=== PATIENT | female | born 2005 | race Caucasian/White ===

== ENCOUNTER 2025-05-28 14:28 | Emergency (ER) | payer MEDICAID, SELFPAY ==
--- NOTE | ~2025-05-28 | XR_ITS ---
CLINICAL HISTORY: pain, constipation? 1 view abdomen Comparison: None provided Findings: Moderate stool burden. No bowel obstruction. No pneumoperitoneum or pneumatosis. No abnormal calcifications. No acute fractures. IMPRESSION: Moderate stool burden. No bowel obstruction. This document has been electronically signed by: Orlando Carballo MD on 05/28/2025 18:59:53
--- NOTE | 2025-05-28 14:36 | ED.GENADULT ---
HPI - General Adult General Chief complaint: GI Bleed Stated complaint: endometriosis concerns Time Seen by Provider: 05/28/25 18:06 Source: patient Limitations: no limitations History of Present Illness ED Provider: Betina Santoyo PA-C HPI narrative: 19-year-old female presents with rectal bleeding x6 months. Patient states she will of intermittent episodes of bright red blood per rectum. She does admit to constipation at times. Associated abdominal cramping and nausea times as well. Today, she noted a larger amount of blood in the toilet and became concerned. Denies rectal pain, fever. Related Data Allergies Allergy/AdvReac Type Severity Reaction Status Date / Time amoxicillin Allergy Unknown Verified 05/28/25 14:56 Review of Systems Review of Systems: Yes all other systems are reviewed and are negative Constitutional: Constitutional: Denies fatigue and Denies fever(s) Cardiovascular: Cardiovascular: Denies chest pain and Denies dyspnea Respiratory: Respiratory: Denies dyspnea Gastrointestinal: Gastrointestinal: Reports constipation, Reports GI cramping, Reports nausea and Denies vomiting Endocrine: Endocrine: Denies fatigue [facility] Past Medical History Attestation statement: The following information was validated with the patient. Social History Social History Alcohol intake: current Smoked in Last 30 Days: No Use of substances other than those prescribed or required for medical reasons: No Advance Directives: No Advance Directives Information Provided: No Patient : No Physical Exam ED Vital Signs: Vital Signs - 24 hr 05/28/25 14:48 05/28/25 18:41 Temperature 98.4 F Pulse Rate 95 92 Respiratory Rate 20 18 Blood Pressure 130/69 125/80 Pulse Oximetry 99 98 Oxygen Delivery Method Room Air Room Air BMI result Body Mass Index 39.5 Const Other: Alert well-appearing Orientation/consciousness: patient oriented x3 Resp Effort & Inspection: normal respiratory effort Cardio Other: Normal peripheral perfusion GI Other: Deferred rectal exam it was not relevant she is not having rectal pain Skin Other: Warm dry no rash Neuro General: patient oriented x3, gait normal, no focal motor deficits and CN's II-XI intact bilaterally Psych Other: Cooperative Course Course Course Narrative: This is a rapid medical exam performed by Benji Farris NP: Additional HPI, ROS, PE not included below will be deferred to primary provider. Patient is a 19-year-old female presenting to the ED with complaint of bright red rectal bleeding for the past 6 months. Also seen at urgent care yesterday, told she had 1+ leukocytes, but was not treated for a UTI. Plan: labs, UA Medical Decision Making Medical Decision Making [facility] Narrative: 19-year-old female presents with rectal bleeding x6 months. Patient states she will of intermittent episodes of bright red blood per rectum. She does admit to constipation at times. Associated abdominal cramping and nausea times as well. Today, she noted a larger amount of blood in the toilet and became concerned. Denies rectal pain, fever. Problem: Constipation History: Per patient I have considered the following differential diagnoses: Internal versus external hemorrhoids, diverticulosis, polyps, perirectal abscess Plan: Screening labs were obtained from triage, the patient's H&H are completely stable, given duration of symptoms, I suspect she likely has hemorrhoids, it may be constipated at this time. We will obtain a KUB. She has no focal rectal pain to suggest thrombosed hemorrhoids or perirectal abscess. No indication for advanced imaging I have independently reviewed the following tests: Labs: No leukocytosis, not anemic, no electrolyte abnormality, not , not infected urine KUB:Findings: Moderate stool burden. No bowel obstruction. No pneumoperitoneum or pneumatosis. No abnormal calcifications. No acute fractures. IMPRESSION: Moderate stool burden. No bowel obstruction. Differential Diagnosis Differential Diagnoses: The differential diagnosis associated with the presentation includes See medical decision making Admission/Observation Consideration of admission/observation: Escalation of care including admission/observation considered Not applicable Lab Data [facility] Lab Attestation statement: I reviewed the patient's lab results. 05/28/25 15:47 05/28/25 15:47 Labs: Lab Results 05/28/25 05/28/25 Range/Units 15:47 18:48 WBC 9.0 (4.8-10.8) X10*3/uL RBC 4.82 (4.20-5.50) X10*6/uL Hgb 14.3 (12.0-16.0) g/dl Hct 41.5 (37.0-47.0) % MCV 86.1 (80.0-98.0) fL MCH 29.7 (27.0-33.0) pg MCHC 34.5 (31.0-35.0) g/dl RDW 13.5 (11.0-16.0) % Plt Count 268 (160-400) X10*3/uL MPV 8.9 L (9.4-12.3) fL Immature Gran % (Auto) 0.6 H (0.0-0.4) % Neut % (Auto) 61.2 (45-73) % Lymph % (Auto) 29.6 (20-40) % Bennett % (Auto) 7.4 (2-11) % Eos % (Auto) 0.9 (0-4) % Baso % (Auto) 0.3 (0-2) % Lymph # (Auto) 2.7 (1.2-4.9) X10*3/uL Bennett # (Auto) 0.7 (0.1-1.2) X10*3/uL Eos # (Auto) 0.1 (0.0-0.4) X10*3/uL Baso # (Auto) 0.0 (0.0-0.2) X10*3/uL Abs Immat Gran (auto) 0.05 H (0.00-0.03) X10*3/uL Absolute Neuts (auto) 5.5 (2.0-8.3) x10*3/uL Absolute Nucleated RBC 0.000 (0.0-0.012) X10*3/uL Nucleated RBC % (auto) 0.0 (0.0-0.2) /100WBC Sodium 140 (135-145) mmol/L Potassium 4.5 (3.3-5.1) mmol/L Chloride 109 H (96-108) mmol/L Carbon Dioxide 25 (22-29) mmol/L Anion Gap 11 L (12-20) BUN 12 (9-16) mg/dL Creatinine 0.67 (0.5-1.4) mg/dL Estim Creat Clear Calc 146.4 Estimated GFR > 60 Random Glucose 78 (60-115) mg/dL Calcium 9.7 (8.4-10.2) mg/dL Total Bilirubin 0.2 (0.0-1.0) mg/dL AST 25 (5-31) U/L ALT 29 (0-31) U/L Alkaline Phosphatase 91 (39-117) U/L Total Protein 7.4 (6.5-8.0) g/dL Albumin 4.7 (3.5-5.0) g/dL Beta HCG, Quant < 2 mIU/mL Urine Color Yellow Urine Appearance Clear Urine pH 8.5 (5.0-9.0) Ur Specific [place] 1.015 (1.005-1.025) Urine Protein Negative (Neg-Trace) mg/dL Urine Glucose (UA) Negative (Negative) mg/dL Urine Ketones Negative (Negative) mg/dL Urine Blood Negative (Negative) Urine Nitrite Negative (Negative) Ur Leukocyte Esterase Trace H (Negative) Urine RBC 0-2 (0-2) /HPF Urine WBC 0-5 (0-5) /HPF Ur Squamous Epith Cells 6-10 (0-2) /HPF Urine Bacteria Trace (None Seen) Hyaline Casts 0-2 (0-2) /LPF Radiology Impression Discussion of test interpretation with radiology: I have reviewed the radiologist's reading. Discharge Plan Discharge Clinical Impression: Constipation Patient Disposition: Home, Self-Care Instructions: Constipation (ED) Additional Instructions: All of your screening labs were completely normal, your blood counts are normal as well. You do not have a urinary tract infection. The x-ray revealed that you were considerably constipated. See home care instructions. At this point you should use Colace twice a day, MiraLax 4 to 5 times a day, until you begin having multiple large volume bowel movements. Once you evacuate your current stool burden, stay on a bowel regimen indefinitely. You could try Colace daily with the MiraLax daily, to help maintain regularity. Follow up with your primary care provider as needed. Stand Alone Forms: Work/School Release Print Language: Djiboutian
[2025-05-28 14:48] VITALS: BP 130/69; PULSE 95; RESP 20; TEMP 36.9; O2SAT 99; BMI 39.5
[2025-05-28 15:58] LABS: MANUAL DIFF FLAG NO
[2025-05-28 16:00] LABS: Hematocrit 41.5 % (37.0-47.0); Hemoglobin 14.3 g/dl (12.0-16.0); Imm Gran Abs Auto 0.05 X10*3/uL (0.00-0.03); Imm Gran Pct Auto 0.6 % (0.0-0.4); Lymphocytes Absolute Auto 2.7 X10*3/uL (1.2-4.9); Mean Corpuscular HGB Conc 34.5 g/dl (31.0-35.0); Mean Corpuscular Hemoglobin 29.7 pg (27.0-33.0); Mean Corpuscular Volume 86.1 fL (80.0-98.0); NRBC Abs Auto 0.000 X10*3/uL (0.0-0.012); NRBC Pct Auto 0.0 /100WBC (0.0-0.2); Platelet Count 268 X10*3/uL (160-400); Red Blood Count 4.82 X10*6/uL (4.20-5.50); White Blood Count 9.0 X10*3/uL (4.8-10.8)
[2025-05-28 16:19] LABS: Alanine Aminotransferase 29 U/L (0-31); Albumin Level 4.7 g/dL (3.5-5.0); Alkaline Phosphatase 91 U/L (39-117); Anion Gap 11 (12-20); Aspartate Amino Transferase 25 U/L (5-31); Blood Urea Nitrogen 12 mg/dL (9-16); Calcium 9.7 mg/dL (8.4-10.2); Carbon Dioxide 25 mmol/L (22-29); Chloride 109 mmol/L (96-108); Creatinine Clr Calc Pharmacy 146.4; Estimated Glomerular Filt Rate > 60; Potassium 4.5 mmol/L (3.3-5.1); Sodium 140 mmol/L (135-145); Total Protein 7.4 g/dL (6.5-8.0)
--- OUTSIDE RECORDS SUMMARY | 2025-05-28 18:23 | XMS_ITS | Clinical Summary ---
Author Organization [facility] Health Address [address] [place] [address] Care Team Providers Care Abrasive Mixer Helper Name Role Phone Unavailable Primary Care Provider Unavailabl e Allergies No known active allergies Medications cyanocobalamin (VITAMIN B-12) 1,000 mcg tablet Take 1,000 mcg by mouth. Active Active Problems Problem Noted Date Diagnosed Date Encounter for routine dental examination 023 Dental caries unspecified 04/28/2023 Overview (06/26/2023): Replacing diagnoses that were inactivated after 06/07 regulatory import. Headache 07/09/2022 Overview (04/28/2023): more tension headaches; about 2x/week not migraine-like; no aura with history of concussion Hx of concussion 07/09/2022 Vitamin B12 deficiency 10/15/2021 Overview (04/28/2023): 10/15/2021. Vitamin B12 216. Recommend daily replacement. Lab Results Component Value Date B12 216 10/11/2021 Last Assessment & Plan: The current medical regimen is effective; continue present plan and medications. - B12 mckp-qme-pkhtegh supplement (still taking) recheck B12 lab Dietary iron deficiency without anemia Overview (04/28/2023): 10/14/2021 recommended to start on iron supplementation, but never did Lab Results Component Value Date HGB 14.1 10/11/2021 Lab Results Component Value Date FERRITIN 8 10/11/2021 Last Assessment & Plan: has not been taking gtit-luo-aweemkd iron recheck ferritin and iron profile now; if still low iron and ferritin, restart iron supplement ferrous sulfate every other day and recheck labs again in 3mos on suppl Vitamin D deficiency 10/14/2021 Overview (04/28/2023): Start on supplement. Recheck in 3 months. Lab Results Component Value Date VITD25 18 10/11/2021 Last Assessment & Plan: recommending to restart vit D3 zfis-iyr-wewxmbg supplement 2000 IU/day (since not been taking) recheck vit D lab now and in 3mos on supplement Generalized anxiety disorder 05/01/2021 Overview (04/28/2023): not on meds Major depressive disorder, single episode 2020 Overview (04/28/2023): not on meds Last PHQ-9 Score Date: 10/11/2021 Last PHQ-9 Score: 7 Item 9 Score: 0 - Not at all Current medication(s): None Prior medication(s): None Therapy: followed by Behavioral Health through , but not since mid 2021 Safety Planning: None needed as patient is not suicidal Today's Date: 07/09/2022 Last Assessment & Plan: PHQ-9 equals 7 today. No SI/HI. Acne 04/05/2021 Overview (04/28/2023): uses facial wash, and Retin A 0.05% -used to use Cleocin topical - not significantly helping -took combined OCP, but d/c early 2021 due weight gain and mood swings Last Assessment & Plan: will check labs to rule out PCOS could rediscuss acne treatment if not enough improved with RetinA only Immunizations Immunization Administration Dates Next Due DTaP 11/30/2009, 6,01/30/2005,12/02,2004 DTaP-IPV 08/04/2005, 5,2004,10/04 HPV, unspecified 10/11/2021 Hep A, unspecified 08/03/2008,08/06/2007 Hep B, unspecified 01/30/2005,2004, 004 IPV 11/30/2009, 5,2004,10/04 Influenza, split virus, trivalent, PF 07/10/2009 Influenza, unspecified 06/24/2008,2006,08/03/2006,08/04,06/21/2005 MMR 11/30/2009,08/04/2005 Meningococcal MCV4O 10/11/2021 Novel Zyribhlcx-[id number], nasal 11/30/2009,2008 Pneumococcal conjugate PCV 7 01/26/2006, 01/30/2005,2004,10/04 Varicella 07/11/2010,11/30/2009,11/03/2005 Family History Medical History Relation Comments No Known Problems Father No Known Problems Mother Relation Status Comments Father Mother Social History Tobacco Use Types Packs/Day Years Used Date Smoking Tobacco: Never Smokeless Tobacco: Never Tobacco Cessation:Counseling Given: Not Answered Alcohol Use Standard Drinks/Week Comments Never 0 (1 standard drink = 0.6 oz pur e alcohol) Comments No Sex and Gender Information Value Date Recorded Sex Assigned at Not on file Legal Sex Female 2:46 PM PDT Gender Identity Not on file Sexual Orientation Not on file Last Filed Vital Signs Vital Sign Reading Time Taken Comments Blood Pressure 115/78 04/28/2023 7:10 AM MDT Pulse 70 04/28/2023 7:10 AM MDT Temperature - - Respiratory Rate - - Oxygen Saturation - - Inhaled Oxygen Concentration - - Weight 77.1 kg (170 lb) 04/28/2023 7:10 AM MDT Height 160 cm (5' 3 ) 04/28/2023 7:10 AM MDT Body Mass Index 30.11 04/28/2023 7:10 AM MDT Plan of Treatment Health Maintenance Due Date Last Done Comments Dental Oral Exam 10/30/2023 04/28/2023 Dental Prophylaxis 10/30/2023 04/28/2023 Dental X-Ray: Bitewings 10/30/2023 04/28/2023 Dental CBCT 04/28/2026 04/28/2023 Dental X-Ray: Full Mouth 04/30/2026 04/29/2023, 04/08 Dental X-Ray: Panoramic 04/30/2026 04/29/2023 Procedures Procedure Name Priority Date/Time Associated Diagnosis Comments CONE BEAM CT CAPTURE AND INTERPRETATION WITH FIELD OF VIEW OF BOTH JAWS; WITH OR WITHOUT CRANIUM Routine 04/28/2023 7:00 AM MDT PROPHYLAXIS - ADULT Routine 04/28/2023 7 :00 AM MDT COMPREHENSIVE ORAL EVALUATION - NEW OR ESTABLISHED PATIENT Routine 04/28/2023 7:00 AM MDT from Last 3 Months or Most Recently Relevant to [place] [address] [facility]
--- OUTSIDE RECORDS SUMMARY | 2025-05-28 18:23 | XMS_ITS | Encounter Summary ---
Author Organization [employer] Address [address] [place] [address] Care Team Providers Care Rn Renal Name Role Phone Fifi Gonsales MD Primary Care Provider Unavailab Ryan Todd MD Primary Care Provider + Karen Saldana MD Primary Care Provider [phone] Reason for Visit * Reason Onset Date Comments Med Refill 09/05/2023 Encounter Details Date Type Department Care Team ([facility] st Contact Info) Description 09/05/2023 Refill [facility] [address] [place] [address] Fifi Gonsales MD Panic disorder; Major depression with psychotic features (CMS/HCC); Vitamin D deficiency Social History Tobacco Use Types Packs/Day Years Used Date Smoking Tobacco: Every Day Cigarettes Started: 08/05/2022 Smokeless Tobacco: Never Comments:Pt reports smokes 2 cigarettes a day Alcohol Use Standard Drinks/Week Comments Not Currently 2 (1 standard drink = 0.6 oz pure alcohol) drinks about 2 drinks a month socially Alcohol Answer Date Recorded How often do you have a drink containing alcohol ? 1 08/14/2023 How many drinks containing a lcohol do you have on a typical day when you are drinking? 0 08/14/2023 How often do you have six or more drinks on one occasion? 0 08/14/2023 Depression Answer Date Recorded Patient Health Questionnaire-9 Score 23 08/14/2023 Patient Health Questionnaire-9 Score 23 08/14/2023 Last PHQ-9: Questionnaire Data Not on file 1 10/15/2022 Housing Stability Answer Date Recorded What is your housing situation today? I have wesley mota 08/05/[address] you li ve. Do you have problems with any of the following? I am not sure 08/05/2023 Food Insecurity Answer Date Recorded Within the past 12 months, y ou worried that your food would run out before you got money to buy more: Never True 08/05/2023 Within the past 12 months,th e food you bought just didn't last and you didn't have enough money to get more: Never True Transportation Answer Date Recorded In the past 12 months, has l ack of transportation kept you from medical appts, meetings, work or from getting things needed for daily living? No 08/05/2023 Intimate Partner Violence Answer Date R ecorded Within the last year, have y ou been afraid of your partner or ex-partner? 2 08/05/2023 Within the last year, have y ou been humiliated or emotionally abused in other ways by your partner or ex-partner? 2 Within the last year, have y ou been kicked, hit, slapped, or otherwise physically hurt by your partner or ex-partner? 2 08/05/2023 Within the last year, have y ou been raped or forced to have any kind of sexual activity by your partner or ex-partner? 2 08/05/2023 Utilities Answer Date Recorded In the past 12 months, has t he electric, gas, oil or water company threatened to shut off services in your home? No 08/05/2023 Depression Answer Date Recorded Patient Health Questionnaire-2 Score 5 08/14/2023 Comments No Sex and Gender Information Value Date Recorded Sex Assigned at Female 07/27/2023 3:43 PM EST Legal Sex Female 3:40 PM EST Gender Identity Non-Binary 07/27/2023 3:43 PM EST Sexual Orientation Queer 07/27/2023 3: 43 PM EST documented as of this encounter Miscellaneous Notes * Telephone Encounter - Luanne Johnie - 09/09/2023 11:13 AM EST Control Substance Requested by : Previous Appt: No results found for any previous visit. Past Appointments Date Time Status Provider Department Type Appt Notes 09/05/2023 10:20 AM Comp Tuan Nunez MD [facility] Telephone Visit meds f/u. will be running out today 09/04/2023 2:30 PM Balbir Vaughan MD [facility] Video Visit meds f/u. will be running out today 09/04/2023 10:40 AM Can Fifi Gonsales MD [facility] Video Visit meds f/u. will be running out today 09/02/2023 9:20 AM No Show Fifi Gonsales MD [facility] Video Visit 08/26/2023 4:00 PM Comp Maricel Aguilera, [facility] Video Visit case assignment Future Appointments Date Time Provider Department Center 09/14/2023 7:40 AM Azalia Rider MD [facility] 09/17/2023 2:20 PM Fifi Gonsales MD [facility] Control Substance Request Medications: CLONAZEPAM 0.5MG TAB Last Refill Quantity: 12 Last # of Refills: 0/0 Last Rx Printed: 09/06/2023 [facility]: Did you locate the patient record in the MASSPAT System? Yes Did the Patient have more than 1 record under that name and ? No Were there any non-[facility] prescribers found, not previously noted as acceptable in the last 6 months? Yes Were there any meds filled outside [place] in the last 6 months? No Are the any meds listed on the [facility]AT that are not on the current med list from the last 6 months?No documented in this encounter Plan of Treatment Upcoming Encounters Date Type Department Care Team (Late st Contact Info) Description 06/12/2025 8:20 AM EDT Office Visit [facility] [id number] [place] [address] Karen Saldana MD [address] [place] [phone] documented as of this encounter Visit Diagnoses Diagnosis Panic disorder Panic disorder without agoraphobia Major depression with psychotic features (CMS/HCC) Vitamin D deficiency documented in this encounter Additional Health Concerns Assessment Noted Time PHQ-9 Depression Total Score: 23 023 2:09 PM EST documented as of this encounter Care Teams Rn Renal Relationship Specialty Start Date End Date Fifi Gonsales MD PCP - General Family Medicine 07/27/23 11/15/24 Ryan Andrade MD [address] [place] [address] PCP - General Family Medicine 11/16/24 05/11/25 Karen Saldana MD [address] [place] [address] PCP - General Family Medicine 05/12/25 documented as of this encounter
--- OUTSIDE RECORDS SUMMARY | 2025-05-28 18:23 | XMS_ITS | Encounter Summary ---
Author Organization [employer] Address [address] [facility] [address] [place] [address] Care Team Providers Care Brass Wind Instruments Tube Bender Name Role Phone Fiif Gonsales MD Primary Care Provider Unavailab Ryan Todd MD Primary Care Provider + Karen Saldana MD Primary Care Provider [phone] Reason for Visit * Reason Comments Med Refill Encounter Details Date Type Department Care Team ([facility] Contact Info) Description 12/10/2023 Refill [facility] [address] [place] [address] Fifi Gonsales MD Vitamin D deficiency (Primary Dx) Social History Tobacco Use Types Packs/Day Years Used Date Smoking Tobacco: Every Day Cigarettes 0.3 2.8 Started: 08/05/2022 Smokeless Tobacco: Never Comments:Pt reports [...] PM EST documented as of this encounter Plan of Treatment Upcoming Encounters Date Type Department Care Team (Late st Contact Info) Description 06/12/2025 8:20 AM EDT Office Visit [facility] [address] [place] [address] Karen Saldana MD [address] [place] [address] documented as of this encounter Visit Diagnoses Diagnosis Vitamin D deficiency- Primary documented in this encounter Additional Health Concerns Assessment Noted Time PHQ-9 Depression Total Score: 023 2:09 PM EST documented as of this encounter Care Teams Brass [employer] Instruments Tube Bender Relationship Specialty Start Date End Date Fifi Gonsales MD PCP - General Family Medicine 07/27/23 11/15/24 Ryan Andrade MD [address] [place] [address] PCP - General Family Medicine 11/16/24 05/11/25 [place] [address] [place] [id number] PCP - General Family Medicine 05/12/25 documented as of this encounter
--- OUTSIDE RECORDS SUMMARY | 2025-05-28 18:23 | XMS_ITS | Encounter Summary ---
Author Organization [employer] Address [address] [facility] [address] [place] [address] Care Team Providers Care Insurance Law Specialist Name Role Phone Fifi Gonsales MD Primary Care Provider Unavailab Ryan Todd MD Primary Care Provider + Karen Saldana MD Primary Care Provider [phone] Reason for Visit * Reason Comments Med Change Request Encounter Details Date Type Department Care Team ([facility] Contact Info) Description 10/03/2023 Refill [facility] [address] [place] [address] Fifi Gonsales MD Panic disorder; Major depression with psychotic features (CMS/HCC); Subacute frontal sinusitis Social History Tobacco Use Types Packs/Day Years [...] encounter Miscellaneous Notes * Telephone Encounter - Mehran Cobb - 10/05/2023 2:31 PM EST PATIENT REQUEST RX azithromycin Previous Appt: No results found for any previous visit. Past Appointments Date Time Status Provider Department Type Appt Notes 09/25/2023 10:40 AM Kishore De La Rosa NP [facility] Office Visit recheck 09/18/2023 10:20 AM Balbir Rider MD [facility] Office Visit recheck 09/17/2023 2:20 PM Can Fifi Gonsales MD [facility] Same Day recheck 09/14/2023 7:40 AM Comp Azalia Rider MD [facility] Video Visit medication follow up 09/05/2023 10:20 AM Comp Tuan Nunez MD [facility] Telephone Visit meds f/u. will be running out today Future Appointments Date Time Provider Department Center 10/15/2023 6:40 PM Azalia Rider MD [facility] This result has been reviewed by Mehran Cobb MA on 10/05/23 at 2:32 PM. * Telephone Encounter - Fifi Gonsales MD - 10/05/2023 1:54 PM EST Approving, but needs appt for additional refills. * Telephone Encounter - Luanne Jett - 10/05/2023 1:48 PM EST 90 days supply [facility] by[facility] Previous appointment: No results found for any previous visit. Next Appointment: Future Appointments Date Time Provider Department Center 10/15/2023 6:40 PM Azalia Rider MD [facility] Resend to Pharmacy documented in this encounter Plan of Treatment Upcoming Encounters Date Type Department Care Team (Late st Contact Info) Description 06/12/2025 8:20 AM EDT Office Visit [facility] [place] [address] Karen Saldana MD [address] [place] [id number] documented as of this encounter Visit Diagnoses Diagnosis Panic disorder Panic disorder without agoraphobia Major depression with psychotic features (CMS/HCC) Subacute frontal sinusitis documented in this encounter Additional Health Concerns Assessment Noted Time PHQ-9 Depression Total Score: 23 023 2:09 PM EST documented as of this encounter Care Teams Insurance Law Specialist Relationship Specialty Start Date End Date Fifi Gonsales MD PCP - General Family Medicine 07/27/23 11/15/24 Ryan Andrade MD [facility] [place] [address] PCP - General Family Medicine 11/16/24 05/11/25 [place] [address] [place] [id number] PCP - General Family Medicine 05/12/25 documented as of this encounter
--- OUTSIDE RECORDS SUMMARY | 2025-05-28 18:23 | XMS_ITS | Encounter Summary ---
Author Organization [employer] Address [address] [facility] [address] [place] [address] Care Team Providers Care Eeg Technologist Name Role Phone Fifi Gonsales MD Primary Care Provider Unavailab Ryan Todd MD Primary Care Provider [phone] Karen Saldana MD Primary Care Provider [phone] Encounter Details Date Type Department Care Team (Late st Contact Info) Description 09/04/2023 Telephone [facility] [address] [place] [address] Fifi Gonsales MD Social History Tobacco Use Types Packs/Day Years [...] the past 12 months, has t he [employer], gas, oil or water company threatened to [...] Description 06/12/2025 8:20 AM EDT Office Visit [facility] [address] [place] [address] Karen Saldana MD [address] [place] [address] documented as of this encounter Visit Diagnoses Not on filedocumented in this encounter Additional Health Concerns Assessment Noted Time PHQ-9 Depression Total Score: 23 023 2:09 PM EST documented as of this encounter Care Teams Eeg Technologist Relationship Specialty Start Date End Date Fifi Gonsales MD PCP - General Family Medicine 07/27/23 11/15/24 Ryan Andrade MD [address] [place] [address] PCP - General Family Medicine 11/16/24 05/11/25 Karen Saldana MD [address] [place] [address] PCP - General Family Medicine 05/12/25 documented as of this encounter
--- OUTSIDE RECORDS SUMMARY | 2025-05-28 18:23 | XMS_ITS | Encounter Summary ---
Author Organization [facility] Address [address] [place] [address] Care Team Providers Care Surface Water Technician Name Role Phone Unavailable Primary Care Provider Unavailabl e Prior Encounters Date Type Department Care Team Description 10/20/2023 Telephone [facility] [address] [place] [address], [facility] [[email or web address] [address] [place] [address] Phill Estrada DDS 04/28/2023 Travel 04/28/2023 7:00 AM MDT Office Visit [facility] [address], [facility] [[email or web address] [address] [place] [address] Danay Fernandez DDS Encounter for routine dental examination (Primary Dx); Dental caries unspecified Last Filed Vital Signs Vital Sign Reading [...] 04/28/2023 7:10 AM MDT Plan of Treatment Not on file Procedures Procedure Name Priority Date/Time Associated Diagnosis Comments APPLICATION OF DESENSITIZING MEDICAMENT Routine 04/28/2023 7:00 AM MDT 2 DO RESIN-BASED COMPOSITE - TWO SURFACES, POSTERIOR Routine 04/28/2023 7:00 AM MDT ORAL HYGIENE INSTRUCTIONS Routine 2022 7:00 AM MDT TOPICAL APPLICATION OF FLUORIDE VARNISH Routine 04/28/2023 7:00 AM MDT PROPHYLAXIS - ADULT Routine 04/28/2023 7 :00 AM MDT INTRAORAL PHOTO Routine 04/28/2023 7:00 AM MDT INTRAORAL PHOTO Routine 04/28/2023 7:00 AM MDT INTRAORAL PHOTO Routine 04/28/2023 7:00 AM MDT INTRAORAL PHOTO Routine 04/28/2023 7:00 AM MDT ADDITIONAL X-RAY Routine 04/28/2023 7:00 AM MDT SINGLE X-RAY Routine 04/28/2023 7:00 AM MDT BITEWINGS - FOUR RADIOGRAPHIC IMAGES Routine 04/28/2023 7:[address] CAPTURE AND INTERPRETATION WITH FIELD OF VIEW OF BOTH JAWS; WITH OR WITHOUT CRANIUM Routine 04/28/2023 7:00 AM MDT COMPREHENSIVE ORAL EVALUATION - NEW OR ESTABLISHED PATIENT Routine 04/28/2023 7:00 AM MDT 30 O COMPOSITE FILLING Routine 12:00 AM MDT 31 JUDE COMPOSITE FILLING Routine 04/28/20 12:00 AM MDT 19 SEALANT Routine 04/28/2023 12:00 AM MDT 18 SEALANT Routine 04/28/2023 12:00 AM MDT 13 SEALANT Routine 04/28/2023 12:00 AM MDT 14 MO COMPOSITE FILLING Routine 04/28/20 12:00 AM MDT 3 SEALANT Routine 04/28/2023 12:00 AM MDT Visit Diagnoses Diagnosis Start Date Encounter for routine dental examination 04/28/2023 Dental caries unspecified 04/28/2023 Insurance [email or web address] [id number] [facility]
--- OUTSIDE RECORDS SUMMARY | 2025-05-28 18:23 | XMS_ITS | Encounter Summary ---
Author Organization [employer] Address [address] [facility] [address] [place] [address] Care Team Providers Care Role Player Name Role Phone Fifi Gonsales MD Primary Care Provider Unavailab Ryan Todd MD Primary Care Provider + Karen Saldana MD Primary Care Provider [phone] Reason for Referral * Consultation (Routine) - Closed Specialty Diagnoses / Procedures Referred By Contac t Referred To Contact Neuropsychology Diagnoses Inattention Fifi Gonsales MD [facility] [address] [facility] 3rd Floor [place], [place] Referral ID Status Reason Start Date Expiration Date V isits Requested Visits Authorized [id number] Closed Specialty Services Required 11/03/2023 11/02/2024 12 12 Encounter Details Date Type Department Care Team ([facility] Contact Info) Description 11/03/2023 Orders Only [facility] [address] [place] [address] Fifi Gonsales MD Inattention (Primary Dx) Social History Tobacco Use Types [...] Description 06/12/2025 8:20 AM EDT Office Visit [address] [address] Karen Saldana MD [address] [place] [address] Scheduled Referrals Name Type Priority Associated Diagnoses Orde r Schedule Referral to Neurology Outpatient Referral Routine Inattention Expected: 11/03/2023 (Approximate), Expires: 11/03/2024 documented as of this encounter Visit Diagnoses Diagnosis Inattention- Primary Other specified conditions influencing health status documented in this encounter Additional Health Concerns Assessment Noted Time PHQ-9 Depression Total Score: 23 023 2:09 PM EST documented as of this encounter Care Teams Role Player Relationship Specialty Start Date End Date Fifi Gonsales MD PCP - General Family Medicine 07/27/23 11/15/24 Ryan Andrade MD [address] [place] [address] PCP - General Family Medicine 11/16/24 05/11/25 Karen Saldana MD [address] [place] [address] PCP - General Family Medicine 05/12/25 documented as of this encounter
--- OUTSIDE RECORDS SUMMARY | 2025-05-28 18:24 | XMS_ITS | Encounter Summary ---
Author Organization [employer] Address [address] [facility] 7 [place] [address] Care Team Providers Care Manager Testing Name Role Phone Fifi Gonsales MD Primary Care Provider Unavailab Ryan Todd MD Primary Care Provider [phone] Karen Saldana MD Primary Care Provider [phone] Reason for Visit * Reason Onset Date Comments Advice Only 01/15/2024 Encounter Details Date Type Department Care Team ([facility] Contact Info) Description 01/15/2024 Telephone [facility] [address] [place] [address] Fifi Gonsales MD Advice Only Social History Tobacco Use Types Packs/Day Years [...] the past 12 months, has t he [employer], gas, oil or water [employer] threatened to shut off services in your [...] encounter Miscellaneous Notes * Telephone Encounter - Miguel John - 01/15/2024 7:13 PM EDT 5705 - [facility] - ([place]) Patient/Family Caller Name:RanAlexandria PT Name:Contreras Tongn Patient :2005 Age:(18 yrs) Call Date/Time:01/15/2024 05:42 PM Alt. Phone:null 1st Guideline:2381 Tick Bite - (Adult After-Hours) Final Guideline:2381 Tick Bite - (Adult After-Hours) Care Advice:Call PCP within 24 hours Nurse:elaina Preliminary Assessment Notes:Pt Recently Got A. Tick Bite and Wants To Know If Can Get Exposure Medication. O/C: Nickolas Cruz [phone]: She/her Triage Assessment Notes:1st attempt, no answer. [facility] BP RN Pt was bit by a tick on the right leg today at work, it looked like a deer tick/watermelon seed, and it was swollen. The tick was attached for 4 hours. Pt is unsure of the last tetanus shot and is asking for prophylaxis ABX Rx. Pt's pharmacy is [facility] on [facility] [facility] in [place]. Msg sent to [place] Nickolas Cruz DO via misecure. Msg back, Last tetanus was within 10 years so all set, I will send in doxy to the pharmacy. Called and updated pt. Pt verbalized understanding. CARE ADVICE given per Tick Bites (Adult) guideline. Emily Mays RN Questions / Responses for 2380-Tick Bite - (Adult After-Hours) Resp. Initial Assessment Questions Comments YES 1. TYPE of TICK: Is it a wood tick or a deer tick? If unsure, ask: What size was the tick? Did it look more like a watermelon seed or a poppy seed? black, looked like a watermelon seed, YES 2. LOCATION: Where is the tick bite located? right leg YES 3. ONSET: How long do you think the tick was attached before you removed it? (Hours or days) 4 hours NO 4. TETANUS: When was the last tetanus booster? unsure 5. : Is there any chance you are ? When was your last menstrual period? Resp. Triage Questions (Triggering Disposition) Comments YES [1] Probable deer tick AND [2] attached > 24 hours (or tick appears swollen, not flat) AND [3] occurred in an area where Lyme disease is common Reason: consider antibiotic prophylaxis CA: 50, 16, 5, 20, 7, 1 Resp. Care Advice Comments CARE ADVICE given per Tick Bites (Adult) guideline. ANTIBIOTIC OINTMENT: Wash the wound and your hands with soap and water after removal to prevent catching any tick disease. Apply antibiotic ointment (OTC) to the bite once. CALL BACK IF: - You can't remove the tick or the tick's head - Fever or rash occur in the next 2 weeks - Bite begins to look infected - You become worse. TINY DEER TICK REMOVAL: - Harrington ticks are very small and need to be scraped off with a credit card edge or the edge of a knife blade. - Place tick in a sealed container (e.g., glass jar, zip lock plastic bag), in case the doctor wants to see it. BETO: - Place tick in a sealed container (e.g., glass jar, zip lock plastic bag). - Check with your local public health to determine if tick needs to be sent for testing. CALL PCP WITHIN 24 HOURS: You need to discuss this with your doctor within the next 24 hours. - IF OFFICE WILL BE OPEN: Call the office when it opens tomorrow morning. - IF OFFICE WILL BE CLOSED: I'll page him now. (EXCEPTION: from 9 pm to 9 am. Since this isn't urgent, we'll hold the page until morning.) documented in this encounter Plan of Treatment Upcoming Encounters Date Type Department Care Team (Late st Contact Info) Description 06/12/2025 8:20 AM EDT Office Visit [address] [address] Karen Saldana MD [address] [place] [address] documented as of this encounter Visit Diagnoses Not on filedocumented in this encounter Additional Health Concerns Assessment Noted Time PHQ-9 Depression Total Score: 23 023 2:09 PM EST documented as of this encounter Care Teams Manager Testing Relationship Specialty Start Date End Date Fifi Gonsales MD PCP - General Family Medicine 07/27/23 11/15/24 Ryan Andrade MD [address] [place] [address] PCP - General Family Medicine 11/16/24 05/11/25 Karen Saldana MD [address] [place] [address] PCP - General Family Medicine 05/12/25 documented as of this encounter
--- OUTSIDE RECORDS SUMMARY | 2025-05-28 18:24 | XMS_ITS | Encounter Summary ---
Author Organization [employer] Address [address] [facility] [address] [place] [address] Care Team Providers Care Butcher Helper Name Role Phone Fifi Gonsales MD Primary Care Provider Unavailab Ryan Todd MD Primary Care Provider [phone] Karen Saldana MD Primary Care Provider [phone] Reason for Visit * Reason Onset Date Comments Med Refill 01/19/2024 Encounter Details Date Type Department Care Team ([facility] st Contact Info) Description 01/19/2024 Refill [facility] [address] [place] [address] Fabricio Lim CNP [address] [place] [address] Attention deficit hyperactivity disorder (ADHD), predominantly inattentive type; Major depression with psychotic features (CMS/HCC) Social History Tobacco Use Types Packs/Day Years Used Date Smoking Tobacco: Every Day Cigarettes 0.3 2.8 Started: 08/05/2022 Smokeless Tobacco: Never Comments:Pt reports smokes 2 cigarettes a day Alcohol Use Standard Drinks/Week Comments Not Currently 2 (1 standard drink = 0.6 oz pure alcohol) drinks about 2 drinks a month socially Alcohol Answer Date Recorded Q1: How often do you have a drink containing alc ohol? 2 01/21/2024 Q2: How many drinks containi ng alcohol do you have on a typical day when you are drinking? 1 01/21/2024 Q3: How often do you have six or more drinks on one occasion? 1 01/21/2024 Depression Answer Date Recorded Patient Health Questionnaire-9 Score 23 08/14/2023 Patient Health Questionnaire-9 Score 23 08/14/2023 Last PHQ-9: Questionnaire Data Not on file 1 10/15/2022 Housing Stability Answer Date Recorded What is your housing situation today? I have [facility] 01/21/[address] you li ve. Do you have problems with any of the following? None of the above 01/21/2024 Food Insecurity Answer Date Recorded Within the [...] afraid of your partner or ex-partner? 2 01/21/2024 Within the last year, have y ou been humiliated or emotionally abused in other ways by your partner or ex-partner? 2 Within the last year, have y ou been kicked, hit, slapped, or otherwise physically hurt by your partner or ex-partner? 2 01/21/2024 Within the last year, have y ou been raped or forced to have any kind of sexual activity by your partner or ex-partner? 2 01/21/2024 Utilities Answer Date Recorded In the past [...] PM EST documented as of this encounter Functional Status * Audit-C Score Answer Date of Assessment Author 1 01/21/2024 8:32 AM EDT Blake, Generic * Q1: How often do you have a drink containing alcohol? Answer Date of Assessment Author Monthly or less 01/21/2024 8:32 AM EDT Mychart, Generic * Q2: How many drinks containing alcohol do you have on a typical day when you are drinking? Answer Date of Assessment Author 1 or 2 01/21/2024 8:32 AM EDT Mychart, Generic * Q3: How often do you have six or more drinks on one occasion? Answer Date of Assessment Author Never 01/21/2024 8:32 AM EDT Mychart, Generic * Over the last 2 weeks, how often have you been bothered by any of the following problems? Question Answer Date of Assessment Author PHUC-7 Total Score 21 01/21/2024 8:31 AM EDT Mychart, Generic * Feeling nervous, anxious, or on edge Answer Date of Assessment Author 3 01/21/2024 8:31 AM EDT Mychart, Generic * Not being able to stop or control worrying Answer Date of Assessment Author 3 01/21/2024 8:31 AM EDT Mychart, Generic * Worrying too much about different things Answer Date of Assessment Author 3 01/21/2024 8:31 AM EDT Mychart, Generic * Trouble relaxing Answer Date of Assessment Author 3 01/21/2024 8:31 AM EDT Mychart, Generic * Being so restless that it is hard to sit still Answer Date of Assessment Author 3 01/21/2024 8:31 AM EDT Mychart, Generic * Becoming easily annoyed or irritable Answer Date of Assessment Author 3 01/21/2024 8:31 AM EDT Mychart, Generic * Feeling afraid as if something awful might happen Answer Date of Assessment Author 3 01/21/2024 8:31 AM EDT Mychart, Generic documented as of this encounter Plan of Treatment Upcoming Encounters Date Type Department Care Team (Late st Contact Info) Description 06/12/2025 8:20 AM EDT Office Visit [facility] [facility] [address] [place] [address] Karen Saldana MD [address] [place] [address] documented as of this encounter Visit Diagnoses Diagnosis Attention deficit hyperactivity disorder (ADHD), 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
--- OUTSIDE RECORDS SUMMARY | 2025-05-28 18:24 | XMS_ITS | Clinical Summary ---
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 05/01/2021 08/05/2023 08/05/2023 Overview (08/05/2023): not on meds Last PHQ-9 Score Date: 10/11/2021 Last PHQ-9 Score: 7 Item 9 Score: 0 - Not at all Current medication(s): None Prior medication(s): None Therapy: followed by [facility] through , but not since 2021 Safety Planning: None needed as patient is not suicidal Today's Date: 07/09/2022 Last Assessment & Plan: PHQ-9 equals 7 today. No SI/HI. not on meds Last PHQ-9 Score Date: 10/11/2021 Last PHQ-9 Score: 7 Item 9 Score: 0 - Not at all Current medication(s): None Prior medication(s): None Therapy: followed by [facility] through , but not since 2021 Safety Planning: None needed as patient is not suicidal Today's Date: 07/09/2022 Last Assessment & Plan: PHQ-9 equals 7 today. No SI/HI. Acne 04/05/2021 08/05/2023 10/14/2023 Overview (08/05/2023): uses facial wash, and Retin A 0.05% -used to use Cleocin topical - not significantly helping -took combined OCP, but d/c early 2021 due weight gain and mood swings Last Assessment & Plan: will check labs to rule out PCOS could rediscuss acne treatment if not enough improved with RetinA only uses facial wash, and Retin A 0.05% -used to use Cleocin topical - not significantly helping -took combined OCP, but d/c early 2021 due weight gain and mood swings Last Assessment & Plan: will check labs to rule out PCOS could rediscuss acne treatment if not enough improved with RetinA only Encounters Date Type Department Care Team Description 05/12/2025 10:20 AM EDT Telemedicine [facility] [address] [place], [place] [id number] Esa De La Rosa NP Moderate persistent asthma without complication (Primary Dx) 03/28/2025 Refill [facility] [address] [place] [id number] Ryan Andrade MD Moderate persistent asthma without complication 03/23/2025 Refill [facility] [address] [place] [id number] Ryan Andrade MD Moderate persistent asthma without complication 03/23/[address] [address] Siva Albert MD Moderate persistent asthma without complication 02/28/2025 [facility] [address] [address] Siva Albert MD Moderate persistent asthma without complication 02/27/[address] [address] Zamzam Le MD Moderate persistent asthma without complication from Last 3 Months Immunizations Immunization Administration Dates Next Due DTaP 11/30/2009, 6,01/30/2005,12/02,2004 DTaP / IPV 08/04/2005, 5,2004,10/04 HPV 9-Valent 10/11/2021,02/25/2016,12/24/2015 HPV, Unspecified 10/11/2021 Hep A, Adult 07/31/2008,08/06/2007 Hep A, Unspecified 08/03/2008,08/06/2007 Hep B, Unspecified 01/30/2005, 5,2004,08/02 Hib (HbOC) 08/04/2005, 5,2004,10/04 IPV 11/30/2009, 5,2004,10/04 Influenza, IIV3, injectable 07/11/2010 Influenza, Unspecified 06/24/2008,2006,08/03/2006,08/04,06/21/2005 Influenza, seasonal, injecta ble, preservative free 07/10/2009 MMR 11/30/2009,08/04/2005 Meningococcal ACWY, unspecified 12/24/2015 Meningococcal MCV4O 10/11/2021 Novel [id number], nasal 11/30/2009,2008 Pneumococcal Conjugate PCV 7 01/26/2006, 01/30/2005,2004,10/04 Tdap 12/24/2015 Varicella 07/11/2010,11/30/2009,11/03/2005 Family History Medical History Relation Name Comments Depression Brother Edwar Alcohol abuse Father n/a Depression Mother Suyapa Depression Sister Toshia Relation Name Status Comments Brother Edwar Father n/a Mother Suyapa Sister Toshia Social History Tobacco Use Types Packs/Day Years Used Date Smoking Tobacco: Every Day Cigarettes 0.3 2.8 Started: 08/05/2022 Smokeless Tobacco: Never Tobacco Cessation:Ready to Q uit: Not Asked; Counseling Given: Not Answered Comments:Pt reports smokes 2 cigarettes a day [...] Recorded Patient Health Questionnaire-2 Score 5 08/14/2023 Internet Access Answer Date Recorded Internet Access Q1 Yes 06/16/2024 Internet Access Q2 Not on file 06/16/2024 Comments No Sex and Gender Information Value Date Recorded Sex Assigned at Female 07/27/2023 3:43 PM EST Legal Sex Female 3:40 PM EST Gender Identity Non-Binary 07/27/2023 3:43 PM EST Sexual Orientation Queer 07/27/2023 3: 43 PM EST Last Filed Vital Signs Vital Sign Reading Time Taken Comments Blood Pressure 95/64 02/09/2024 11:09 AM EDT Pulse 85 02/09/2024 11:09 AM EDT Temperature 36.4 C (97.6 F) 02/09/2024 11:09 AM EDT Respiratory Rate - - Oxygen Saturation 97% 02/09/2024 11:09 AM EDT Inhaled Oxygen Concentration - - Weight 94.3 kg (208 lb) 02/09/2024 11:09 AM EDT Height 157.5 cm (5' 2 ) 02/09/2024 11:09 AM EDT Body Mass Index 38.04 02/09/2024 11:09 AM EDT Plan of Treatment Upcoming Encounters Date Type Department Care Team (Late st Contact Info) Description 06/12/2025 8:20 AM EDT Office Visit [facility] [address] [place] [address] Karen Saldana MD [address] [place] [address] Health Maintenance Due Date Last Done Comments Chlamydia and Gonorrhea Screening 2004 HIV Screening 2004 Lipid Panel 2004 Disability Screening 2004 Alcohol/Substance Use Screening 2016 Family Planning (PISQ) 2019 Meningococcal B Vaccine (1 of 2 - Standard) 2020 Hepatitis C Screening 2022 Pneumococcal Vaccine: Pediatrics (0 to 5 Years) and At-Risk Patients (6 to 49) Years (1 of 2 - PCV) 2023 01/26/2006, 01/30/2005, 2004, Additional history exists Depression Monitoring 02/13/2024 08/14/2023, 023 COVID-19 Vaccine ( season) 2025 09/05/2021, 01/03/2021, 12/13/2020 Influenza Vaccine (#1) 2025 0, 11/30/2009, 08/01/2009, Additional history exists SDOH Screening 06/16/2025 06/16/2024 DTaP/Tdap/Td Vaccines (7 - Td or Tdap) 12/23/2025 12/24/2015, 11/30/2009, 11/03/2005, Additional history exists Tobacco Screening 05/12/2026 05/12/2025 Zoster Vaccines (1 of 2) 2054 RSV Patients and Patients Aged 60 years or older (1 - 1-dose 75+ series) 2079 Hepatitis B Vaccines Completed 01/30/2005, 2004, 2004, Additional history exists HIB Vaccines Completed 08/04/2005, 01/06, 2004, Additional history exists Hepatitis A Vaccines Completed 08/03/2008, 07/31/2008, 08/06/2007, Additional history exists IPV Vaccines Completed 11/30/2009, 07/09, 01/30/2005, Additional history exists HPV Vaccines Completed 10/11/2021, 020 12/2021, 02/25/2016, Additional history exists Meningococcal Vaccine Completed 10/11/2021, 016 RSV under 20 months Aged Out No longe r eligible based on patient's age to complete this topic Rotavirus Vaccines Aged Out No longer eligible based on patient's age to complete this topic Insurance # [id number] [place] [address] [facility] C3 Care Teams Doctor Podiatric Medicine Relationship Specialty Start Date End Date Karen Saldana MD [address] [place] [address] PCP - General Family Medicine 05/12/25
--- OUTSIDE RECORDS SUMMARY | 2025-05-28 18:24 | XMS_ITS | Encounter Summary ---
Author Organization [employer] Address [address] [facility] 7 [place] [address] Care Team Providers Care Equal Opportunity Assistant Name Role Phone Fifi Gonsales MD Primary Care Provider Unavailab Ryan Todd MD Primary Care Provider + Karen Saldana MD Primary Care Provider [phone] Reason for Visit * Reason Comments Med Change Request Encounter Details Date Type Department Care Team ([facility] Contact Info) Description 01/22/2024 Refill [facility] [address] [place] [address] Fifi Gonsales MD Moderate persistent asthma without complication Social History Tobacco Use Types Packs/Day Years [...] encounter Miscellaneous Notes * Telephone Encounter - GERMAN Villanueva - 01/22/2024 10:26 AM EDT RX Change Request from: Dear provider pharmacy/Patient is requesting a change on RX: 1.Rx sig: No 2.Rx quantity: No 3.Rx day supply: No 4. PA/Alternative Yes Pharmacy comment: Alternative Requested:PRIOR AUTH NEEDED FOR LAI 1. GERMAN Villanueva 01/22/2024 documented in this encounter Plan of Treatment Upcoming Encounters Date Type Department Care Team (Late st Contact Info) Description 06/12/2025 8:20 AM EDT Office Visit [address] [phone] Karen Saldana MD [address] [place] [phone] documented as of this encounter Visit Diagnoses Diagnosis Moderate persistent asthma without complication documented in this encounter Additional Health Concerns Assessment Noted Time PHQ-9 Depression Total Score: 23 023 2:09 PM EST documented as of this encounter Care Teams Equal Opportunity Assistant Relationship Specialty Start Date End Date Fifi Gonsales MD PCP - General Family Medicine 07/27/23 11/15/24 Ryan Andrade MD [address] [place] [phone] PCP - General Family Medicine 11/16/24 05/11/25 Karen Saldana MD [address] [place] [phone] PCP - General Family Medicine 05/12/25 documented as of this encounter
--- OUTSIDE RECORDS SUMMARY | 2025-05-28 18:24 | XMS_ITS | Encounter Summary ---
Author Organization [employer] Address [address] [facility] [address] [place] [address] Care Team Providers Care Title One Reading Teacher Name Role Phone Fifi Gonsales MD Primary Care Provider Unavailab Ryan Todd MD Primary Care Provider + Karen Saldana MD Primary Care Provider [phone] Reason for Visit * Reason Comments Med Change Request Encounter Details Date Type Department Care Team ([facility] Contact Info) Description 01/26/2024 Refill [facility] [address] [place] [address] Fabricio Lim, YAS [address] [place] [address] Bipolar 2 disorder ([facility]) Social History Tobacco Use Types Packs/Day Years [...] encounter Miscellaneous Notes * Telephone Encounter - Caesar Sim MD - 01/27/2024 8:44 AM EDT Can discuss with primary provider for 90 days next visit * Telephone Encounter - Luanne Jett - 01/26/2024 4:25 PM EDT refill request 90 day rx change request Previous Appt: Past Appointments Date Time Status Provider Department Type Appt Notes 01/22/2024 8:40 AM Comp Fifi Gonsales MD [facility] Video Visit f/u, [place] will be in [place], asked for video 01/20/2024 4:30 PM Comp X-RAY AN RAD Office Visit 01/20/2024 4:00 PM Comp Ankita Mejias NP AN OB Office Visit Menstrual pain Exam likely not needed 12/25/2023 11:00 AM Comp Fabricio Lim CNP AN Video Visit 12/09/2023 2:20 PM Comp Fabricio Lim CNP AN Video Visit Future Appointments Date Time Provider Department Center 04/14/2024 10:40 AM Fifi Gonsales MD [facility] documented in this encounter Plan of Treatment Upcoming Encounters Date Type Department Care Team (Late st Contact Info) Description 06/12/2025 8:20 AM EDT Office Visit [facility] [address] [place] [address] Karen Saldana MD [address] [place] [phone] documented as of this encounter Visit Diagnoses Diagnosis Bipolar 2 disorder (CMS/HCC) Other bipolar disorders documented in this encounter Additional Health Concerns Assessment Noted Time PHQ-9 Depression Total Score: 23 023 2:09 PM EST documented as of this encounter Care Teams Title One Reading Teacher Relationship Specialty Start Date End Date Fifi Gonsales MD PCP - General Family Medicine 07/27/23 11/15/24 Ryan Andrade MD [address] [place] [phone] PCP - General Family Medicine 11/16/24 05/11/25 Karen Saldana MD [address] [place] [phone] PCP - General Family Medicine 05/12/25 documented as of this encounter
--- OUTSIDE RECORDS SUMMARY | 2025-05-28 18:24 | XMS_ITS | Encounter Summary ---
Author Organization [employer] Address [address] [facility] [address] [place] [address] Care Team Providers Care Style Advisor Name Role Phone Fifi Gonsales MD Primary Care Provider Unavailab Ryan Todd MD Primary Care Provider + Karen Saldana MD Primary Care Provider [phone] Reason for Visit * Reason Comments Med Change Request Encounter Details Date Type Department Care Team ([facility] Contact Info) Description 07/01/2024 Refill [facility] [address] [place] [address] Fabricio Lim, YAS [address] [place] [address] Schizoaffective disorder, bipolar type (CMS/HCC) Social History Tobacco Use Types Packs/Day [...] encounter Miscellaneous Notes * Telephone Encounter - German Dutton - 07/01/2024 4:02 PM EDT RX Change Request from: Dear provider pharmacy/Patient is requesting a change on RX 1.Rx sig: N/A 2.Rx quantity: N/A 3.Rx day supply: Yes 4. PA/Alternative N/A Pharmacy comment: REQUEST FOR 90 DAYS PRESCRIPTION. documented in this encounter Plan of Treatment Upcoming Encounters Date Type Department Care Team (Late st Contact Info) Description 06/12/2025 8:20 AM EDT Office Visit [address] [address] Karen Saldana MD [address] [place] [phone] documented as of this encounter Visit Diagnoses Diagnosis Schizoaffective disorder, bipolar type (CMS/HCC) Schizoaffective disorder, unspecified condition documented in this encounter Additional Health Concerns Assessment Noted Time PHQ-9 Depression Total Score: 23 023 2:09 PM EST documented as of this encounter Care Teams Style Advisor Relationship Specialty Start Date End Date Fifi Gonsales MD PCP - General Family Medicine 07/27/23 11/15/24 Ryan Andrade MD [address] [place] [phone] PCP - General Family Medicine 11/16/24 05/11/25 Karen Saldana MD [address] [place] [id number] PCP - General Family Medicine 05/12/25 documented as of this encounter
[2025-05-28 18:41] VITALS: BP 125/80; PULSE 92; RESP 18; O2SAT 98
--- NOTE | 2025-05-28 18:44 | PC.NURSE ---
19 F presents to ED with blood in stool for 6 months, worse today and within the last week, pt sts has been getting her period regularly. RR even and unlabored, deneis SOB or CP. Pt is calm, cooperative. A+OX4.
[2025-05-28 18:53] LABS: Appearance Urine Clear; Glucose Urine UA Negative (Negative); PH 8.5 (5.0-9.0); Specific Gravity - Urine 1.015 (1.005-1.025); UMIC TRIGGER UACC YES
[2025-05-28 19:40] VITALS: BP 125/80; PULSE 92; RESP 18; TEMP 36.9; O2SAT 98
== END 2025-05-28 19:44 | disposition home or self-care (01) ==
PROVIDERS: Registered Nurse Emergency; Emergency Provider Student in an Organized Health Care Education/Training Program
DX: K59.00 Constipation, unspecified (principal); R10.2 Pelvic and perineal pain; R11.0 Nausea; R25.2 Cramp and spasm
CPT/HCPCS: 36415; 74018; 80053; 81001; 84702; 85025; 99283; 99284

== ENCOUNTER → 2025-05-28 18:16 | Outpatient (BNV) | payer MEDICAID, SELFPAY | PROVIDERS: Emergency Provider Student in an Organized Health Care Education/Training Program; Visit Provider Radiology Diagnostic Radiology | DX: R19.5 Other fecal abnormalities (principal) | CPT/HCPCS: 74018 ==